=== PATIENT | male | born 1945 | race Caucasian/White ===

== ENCOUNTER 2017-07-07 09:07 | Emergency (ER) | payer MEDICARE, OTHER ==
--- NOTE | 2017-07-07 10:14 | EDM.PDOC ---
ED HPI GENERAL MEDICAL PROBLEM - General Chief Complaint: Genitourinary Problem Stated Complaint: KIDNEY STONE Time Seen by Provider: 07/07/17 10:00 Source of Information: Reports: Patient, RN History Limitations: Reports: No Limitations - History of Present Illness INITIAL COMMENTS - FREE TEXT/NARRATIVE: 71 yo male presents with a couple day hx of L low back pain. He has a hx of kidney stones and thinks this feels similarly. Has not been seen for this before this visit. No fever. No nausea. Pain is nearly gone if he takes his diclofenac, otherwise it is significant. He denies injury. He has a slight increase in pain to that area with coughing. Moving also increases the pain somewhat. No rash. 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 Flank Pain Score (Numeric/FACES): 1 - Related Data Allergies Allergy/AdvReac Type Severity Reaction Status Date / Time No Known Allergies Allergy Verified 07/07/17 09:39 Home Meds: Home Meds Aspirin [Halfprin] 81 mg PO DAILY 07/07/17 [History] Diclofenac Sodium [Voltaren XR] 100 mg PO DAILY 07/07/17 [History] Metoprolol Tartrate [Metoprolol Tartrate] 25 mg PO BID 07/07/17 [History] Omeprazole [Omeprazole] 1 tab PO DAILY PRN 07/07/17 [History] Pentoxifylline [TRENtal] 1 tab PO TID 07/07/17 [History] Pravastatin Sodium [Pravastatin Sodium] 1 tab PO BEDTIME 07/07/17 [History] Warfarin Sodium [Warfarin Sodium] 2.5 mg PO ASDIRECTED 07/07/17 [History] Warfarin Sodium [Warfarin Sodium] 5 mg PO ASDIRECTED 07/07/17 [History] Past Medical History HEENT History: Reports: Hard of Hearing, Impaired Vision Cardiovascular History: Reports: Blood Clots/VTE/DVT, High Cholesterol, Hypertension Neurological History: Reports: CVA, Other (See Below) Other Neuro History: brain anyuerism Endocrine/Metabolic History: Reports: Other (See Below) Other Endocrine/Metabolic History: Thrombocytopenia polycthemia rubra vera cls Hematologic History: Reports: Idiopathic Thrombocytopenia, Polycythemia - Infectious Disease History Infectious Disease History: Reports: Chicken Pox - Past Surgical History Male Surgical History: Reports: Renal Calculus Neurological Surgical History: Reports: Other (See Below) Other Neurological Surgeries/Procedures: Brain anyuresim surgery Social & Family History - Tobacco Use Smoking Status *Q: Current Every Day Smoker Years of Tobacco use: 50 Packs/Tins Daily: 1 Used Tobacco, but Quit: No Second Hand Smoke Exposure: Yes - Caffeine Use Caffeine Use: Reports: Coffee, Soda - Alcohol Use Days Per Week of Alcohol Use: 0 - Recreational Drug Use Recreational Drug Use: No ED ROS GENERAL - Review of Systems Review Of Systems: See Below Constitutional: Reports: No Symptoms HEENT: Reports: No Symptoms Respiratory: Reports: No Symptoms Cardiovascular: Reports: No Symptoms GI/Abdominal: Reports: No Symptoms : Reports: No Symptoms, Other (Left low back). Denies: Discharge, Dysuria, Frequency, Hematuria, Urgency, Urinary Retention Musculoskeletal: Reports: Back Pain (L low back pain) Skin: Reports: No Symptoms Neurological: Reports: No Symptoms ED EXAM, RENAL/ - Physical Exam Exam: See Below Exam Limited By: No Limitations General Appearance: Alert, WD/WN, No Apparent Distress, Obese Eye Exam: Bilateral Eye: Normal Inspection Ears: Normal External Exam, Normal Canal Nose: Normal Inspection, Normal Mucosa, No Blood Throat/Mouth: Normal Inspection, Normal Lips, Normal Oropharynx, Normal Voice, No Airway Compromise Head: Atraumatic, Normocephalic Neck: Normal Inspection, Supple Respiratory/Chest: No Respiratory Distress, Lungs Clear, Normal Breath Sounds, No Accessory Muscle Use Cardiovascular: Regular Rate, Rhythm, No Edema GI/Abdominal: Normal Bowel Sounds, Soft, Non-Tender, No Distention Back Exam: Normal Inspection, Paraspinal Tenderness (mild L paraspinous tenderness lumbar level). No: CVA Tenderness (R), CVA Tenderness (L) Extremities: Normal Inspection, Normal Range of Motion, Non-Tender, No Pedal Edema Neurological: Alert, CN II-XII Intact, Normal Cognition, No Motor/Sensory Deficits Psychiatric: Normal Affect, Normal Mood Skin Exam: Warm, Dry, Intact, Normal Color, No Rash Course - Vital Signs Text/Narrative:: Not able to void here. Bladder scan shows minimal urine in bladder. Patient does not think he'll be able to provide a urine specimen for hrs. Last Recorded V/S: Last Vital Signs Temp 34.4 C L 07/07/17 09:53 Pulse 74 07/07/17 09:53 Resp 16 07/07/17 09:53 BP 124/56 L 07/07/17 09:53 Pulse Ox 89 L 07/07/17 09:53 - Orders/Labs/Meds Orders: Active Orders 24 hr Category Date Time Status Bladder Scan [RC] ONETIME Care 07/07/17 09:15 Active Labs: Laboratory Tests 07/07/17 Range/Units 09:15 Urine Color Yellow Urine Appearance Slightly cloudy Urine pH 6.0 (4.5-8.0) Ur Specific [place] 1.005 L (1.008-1.030) Urine Protein Negative (NEGATIVE) mg/dL Urine Glucose (UA) Normal (NEGATIVE) mg/dL Urine Ketones Negative (NEGATIVE) mg/dL Urine Occult Blood Negative (NEGATIVE) Urine Nitrite Negative (NEGAITVE) Urine Bilirubin Negative (NEGATIVE) Urine Urobilinogen Normal (NORMAL) mg/dL Ur Leukocyte Esterase Negative (NEGATIVE) Urine RBC 0-5 (0-5) Urine WBC 0-5 (0-5) Ur Epithelial Cells Moderate Amorphous Sediment Not seen Urine Bacteria Many Urine Mucus Not seen Departure - Departure Time of Disposition: 10:35 Disposition: Home, Self-Care 01 Condition: Good Clinical Impression: Left low back pain Qualifiers: Chronicity: acute Sciatica presence: without sciatica Qualified Code(s): M54.5 - Low back pain - Discharge Information Referrals: Haseeb Leyva MD [Primary Care Provider] - Forms: ED Department Discharge Additional Instructions: Add acetaminophen 1000 mg every 6 hrs as needed for added pain relief. F/U with your provider tomorrow hopefully with urine in your bladder. - My Orders Last 24 Hours: My Active Orders 07/07/17 09:15 Bladder Scan [RC] ONETIME - Assessment/Plan Last 24 Hours: My Active Orders 07/07/17 09:15 Bladder Scan [RC] ONETIME
== END 2017-07-07 10:48 | disposition home or self-care (01) ==
LOC: JP.ED 09:07
DX: M54.5 Low back pain (principal); I10 Essential (primary) hypertension; E78.00 Pure hypercholesterolemia, unspecified; F17.210 Nicotine dependence, cigarettes, uncomplicated; Z79.82 Long term (current) use of aspirin; Z79.01 Long term (current) use of anticoagulants; Z79.899 Other long term (current) drug therapy
CPT/HCPCS: 51798; 99283; 99283-25

== ENCOUNTER 2017-10-31 07:42 | Day surgery (SDC) | payer MEDICARE, OTHER ==
[2017-10-31] MEDS ORDERED: Sodium Chloride 0.9% 10 ML Syringe FLUSH PRN (08:00)
--- NOTE | 2017-10-31 11:52 | OR ---
DATE OF PROCEDURE: 10/31/2017 POSTOPERATIVE CARE: Postoperative care will be provided mainly at the [address] [place] [address] [facility] in conjunction with [facility]. PREOPERATIVE DIAGNOSIS: Cataract, right eye. POSTOPERATIVE DIAGNOSIS: Cataract, right eye. PROCEDURE: Cataract extraction, phacoemulsification with intraocular lens placement, right eye. ANESTHESIA: Topical and intracameral. ESTIMATED BLOOD LOSS: Minimal. COMPLICATIONS: None. PATHOLOGY SPECIMENS: None. SURGICAL FINDINGS: None. INDICATION FOR PROCEDURE: The patient is a 72-year-old male with history of a visually significant cataract in the right eye, which interfered with activities of daily living. This consisted of a nuclear sclerosis cataract. Following careful discussion of the risks, benefits and alternatives to cataract extraction with intraocular lens placement including blindness and , the patient elected to proceed, and informed, written consent was obtained prior to the procedure. DESCRIPTION OF THE PROCEDURE: The patient was previously identified, and a jim placed above the right eye. All sources, including the patient, indicated that the right eye was the correct eye. The patient was subsequently taken to the operating room where standard monitors were applied. The patient was then prepped and draped in the usual sterile fashion for ophthalmic surgery. Attention was first directed at the 12 o'clock position where a paracentesis port was fashioned. Shugar solution followed by Viscoat was instilled into the eye. Attention was then directed to the 8:30 position where a triplanar incision was made in a near-clear manner using a keratome. A continuous capsulorrhexis was then made using a combination of the cystotome and Utrata forceps. Hydrodissection was achieved using a balanced salt solution, and the lens rotated nicely. Phacoemulsification was then done using a modified [id number] technique without complication. Phaco time was 11.08 CDE. The remaining cortex was removed using the irrigation/aspiration handpiece. Provisc was then instilled into the eye. A Technis lens, model [id number], at 17.5 diopters was then placed in the capsular bag using an [place] injector. The remaining viscoelastic was removed using the irrigation/aspiration forceps. All wounds were then checked and found to be watertight. The lid speculum and drapes were removed. Maxitrol ointment was placed in the patient's right eye, and the eye was shielded. The patient tolerated the procedure well. The patient was instructed to follow up tomorrow. All needle and sponge counts were correct at the end of the procedure. Leilani Hubbard MD /[id number]
== END 2017-10-31 10:15 | disposition home or self-care (01) ==
LOC: JP.SDS 07:42
PROVIDERS: ATTEND Ophthalmology
DX: H25.11 Age-related nuclear cataract, right eye (principal); J44.9 Chronic obstructive pulmonary disease, unspecified; E66.9 Obesity, unspecified; Z99.89 Dependence on other enabling machines and devices
CPT/HCPCS: 66984; J7050; V2632

== ENCOUNTER 2021-07-01 11:02 | Emergency (ER) | payer MEDICARE, OTHER | END 2021-07-01 12:27 | disposition home or self-care (01) | LOC: JP.ED 11:02 | DX: T81.40XA Infection following a procedure, unspecified, initial encounter (principal); E78.00 Pure hypercholesterolemia, unspecified; I10 Essential (primary) hypertension; Z79.01 Long term (current) use of anticoagulants; Z79.899 Other long term (current) drug therapy; Z86.73 Personal history of transient ischemic attack (TIA), and cerebral infarction without residual deficits | CPT/HCPCS: 87070; 87077; 87186; 87205; 99283 ==

== ENCOUNTER 2022-04-21 09:21 | Emergency (ER) | payer MEDICARE, OTHER ==
[2022-04-21] MEDS ORDERED: Sodium Chloride 0.9% 10 ML Syringe FLUSH PRN (09:33)
[2022-04-21] MEDS ORDERED: fentaNYL 100 MCG/2 ML SDV IVPUSH ONE (09:35)
[2022-04-21] MEDS ORDERED: Ondansetron 4 MG/2 ML SDV IVPUSH ONE (09:35)
[2022-04-21] MEDS ORDERED: Lactated Ringers 1,000 ML IV SCH (09:45)
[2022-04-21 09:46] LABS: ESTIMATED GFR 62 mL/min (>60)
[2022-04-21] MEDS ORDERED: Sodium Chloride 0.9% 50 ML IV STA (09:54)
[2022-04-21] MEDS ORDERED: Iopamidol 612 MG/ML 100 ML Bottle IV STA (09:54)
[2022-04-21 10:07] LABS: TROPONIN I HIGH SENSITIVITY 14.8 pg/mL (<=60.3)
[2022-04-21] MEDS ORDERED: Piperacillin/Tazobactam 4.5 GM in Sodium Chloride 0.9% 50 ML IV SCH (11:00)
[2022-04-21] MEDS ORDERED: Albuterol/Ipratropium 3.0-0.5 MG/3 ML Neb Soln NEB ONE (11:01)
[2022-04-21] MEDS ORDERED: Lactated Ringers 1,000 ML IV ONE ×2 (11:24→12:40)
[2022-04-21] MEDS ORDERED: Piperacillin/Tazobactam/Dext 4.5 GM in Premix Bag 1 BAG IV ONE (11:30)
[2022-04-21] MEDS ORDERED: fentaNYL 100 MCG/2 ML SDV ONE (12:25)
[2022-04-21] MEDS ORDERED: Acetaminophen 325 MG Tab PO ONE (12:34)
[2022-04-21] MEDS ORDERED: Norepinephrine Bit/D5W Premix 4 MG in Premix Bag 1 BAG IV SCH (12:45)
== END 2022-04-21 13:12 ==
LOC: JP.ED 09:21
DX: A41.9 Sepsis, unspecified organism (principal); R65.21 Severe sepsis with septic shock; J96.01 Acute respiratory failure with hypoxia; K46.0 Unspecified abdominal hernia with obstruction, without gangrene; K56.699 Other intestinal obstruction unspecified as to partial versus complete obstruction; E78.00 Pure hypercholesterolemia, unspecified; I10 Essential (primary) hypertension; Z79.899 Other long term (current) drug therapy; Z79.01 Long term (current) use of anticoagulants; Z20.822 Contact with and (suspected) exposure to COVID-19
CPT/HCPCS: 36415; 71045; 74177; 80053; 83605; 83690; 84145; 84484; 85025; 86140; 87040; 94640; 96361; 96365; 96367; 96375; 99285; A9270; J2405; J2543; J3010; J3490; J7120; Q9967; U0002; J7620

== ENCOUNTER 2022-06-27 16:40 | Inpatient (IN) | payer MEDICARE, OTHER ==
[2022-06-27] MEDS ORDERED: Sodium Chloride 0.9% 10 ML Syringe FLUSH ONE (18:22)
[2022-06-27] MEDS ORDERED: Iopamidol 612 MG/ML 100 ML Bottle IV ONE (18:22)
[2022-06-27] MEDS ORDERED: Sodium Chloride 0.9% 50 ML IV ONE (18:22)
[2022-06-27] MEDS ORDERED: Ertapenem 1 GM in Sodium Chloride 0.9% 50 ML IV ONE (19:15)
[2022-06-27] MEDS ORDERED: Doxycycline 100 MG in Sodium Chloride 0.9% 100 ML IV SCH (21:59)
[2022-06-27] MEDS ORDERED: Sodium Chloride 0.9% 1,000 ML IV SCH (21:59)
[2022-06-27] MEDS ORDERED: Acetaminophen 325 MG Tab PO PRN (21:59)
[2022-06-27] MEDS ORDERED: Nicotine Polacrilex 2 MG Gum CHEW PRN (21:59)
[2022-06-27] MEDS ORDERED: Pantoprazole 40 MG Vial IV SCH (21:59)
[2022-06-27] MEDS ORDERED: Nicotine 14 MG/24 Hr Patch TRDERM PRN (21:59)
[2022-06-27] MEDS ORDERED: Bisacodyl 5 MG Tab PO PRN (21:59)
[2022-06-27] MEDS ORDERED: Docusate Sodium 100 MG Cap PO PRN (21:59)
[2022-06-27] MEDS ORDERED: Ondansetron 4 MG Tab.DIS PO PRN (21:59)
[2022-06-27] MEDS ORDERED: Morphine 2 MG/ML SYRINGE IVPUSH PRN (21:59)
[2022-06-27] MEDS ORDERED: oxyCODONE 5 MG Tab PO PRN (21:59)
[2022-06-27] MEDS ORDERED: Metoprolol Tartrate 50 MG Tab PO SCH (21:59)
[2022-06-27] MEDS ORDERED: Melatonin 3 MG Tab PO PRN (21:59)
[2022-06-27] MEDS: Apixaban 5 MG Tab PO SCH (22:21)
[2022-06-27 22:28] LABS: CORONAVIRUS COVID-19 NAA NEGATIVE (NEGATIVE)
[2022-06-27] MEDS: Pentoxifylline 400 MG Tab.ER PO SCH (22:41)
[2022-06-27] MEDS: Piperacillin/Tazobactam 2.25 GM in Sodium Chloride 0.9% 50 ML IV SCH (22:41)
[2022-06-28] MEDS: Piperacillin/Tazobactam 2.25 GM in Sodium Chloride 0.9% 50 ML IV SCH (04:11)
[2022-06-28] MEDS ORDERED: Metoprolol Tartrate 25 MG Tab PO SCH (09:00)
[2022-06-28] MEDS ORDERED: Piperacillin/Tazobactam/Dext 2.25 GM in Premix Bag 1 BAG IV SCH (10:00)
[2022-06-28] MEDS: Pentoxifylline 400 MG Tab.ER PO SCH ×2 (10:28→15:11)
[2022-06-28] MEDS: Apixaban 5 MG Tab PO SCH (10:34)
[2022-06-28] MEDS ORDERED: Doxycycline 100 MG in Sodium Chloride 0.9% 100 ML IV SCH (11:00)
[2022-06-28] MEDS ORDERED: Pravastatin 20 MG Tab PO SCH (21:00)
== END 2022-06-28 15:15 | DRG 728 ==
LOC: JP.ED 16:40 → JP.MS 21:28
PROVIDERS: ADMIT Internal Medicine; ATTEND Student in an Organized Health Care Education/Training Program
DX: T81.49XA Infection following a procedure, other surgical site, initial encounter (principal); N49.2 Inflammatory disorders of scrotum; N50.89 Other specified disorders of the male genital organs; I69.354 Hemiplegia and hemiparesis following cerebral infarction affecting left non-dominant side; E78.00 Pure hypercholesterolemia, unspecified; I73.9 Peripheral vascular disease, unspecified; L98.8 Other specified disorders of the skin and subcutaneous tissue; Z79.899 Other long term (current) drug therapy; L98.499 Non-pressure chronic ulcer of skin of other sites with unspecified severity; Z86.73 Personal history of transient ischemic attack (TIA), and cerebral infarction without residual deficits; Y83.8 Other surgical procedures as the cause of abnormal reaction of the patient, or of later complication, without mention of misadventure at the time of the procedure; F17.210 Nicotine dependence, cigarettes, uncomplicated; E78.5 Hyperlipidemia, unspecified; I10 Essential (primary) hypertension; I87.2 Venous insufficiency (chronic) (peripheral); Z66 Do not resuscitate; I25.10 Atherosclerotic heart disease of native coronary artery without angina pectoris; Z20.822 Contact with and (suspected) exposure to COVID-19; Z87.01 Personal history of pneumonia (recurrent); Z98.42 Cataract extraction status, left eye; Z87.19 Personal history of other diseases of the digestive system; Z98.890 Other specified postprocedural states; I25.2 Old myocardial infarction; Z86.718 Personal history of other venous thrombosis and embolism; Z79.01 Long term (current) use of anticoagulants; Z98.41 Cataract extraction status, right eye; Z87.442 Personal history of urinary calculi
CPT/HCPCS: 0241U; 36415; 72193; 76870; 80048; 83605; 85025; 87070; 87077; 87205; 93975; 96365; 99222; 99239; 99284; 99285-25; A9270-GY; C9113; J1335; J2543; J3370; J3490; J7030; J7050; Q9967